=== PATIENT | female | born 1995 ===

== ENCOUNTER 2019-02-18 12:51 | Emergency (ER) | payer SELFPAY ==
[2019-02-18 13:11] VITALS: BP 125/51
--- NOTE | 2019-02-18 13:17 | Emergency Department Report ---
Chief Complaint: Medical Clearance Stated Complaint: 5WKS DOC ORDERED Time Seen by Provider: 02/18/19 13:08 - HPI History of Present Illness: 23 y o female at 5 weeks gestation presents to ER stating she needs a referral for an obgyn She states that she was recently confirmed at her pcp office last week for positive states her pcp is unable to get her a refferral because of her insurance She denies f/c/n/v/abd pain or any problems - ROS Review of Systems: As noted in HPI - Exam Vital Signs: Vital Signs 02/18/19 13:06 Temperature 98.8 F Pulse Rate 93 H Respiratory 18 Rate Blood Pressure 125/51 O2 Sat by Pulse 98 Oximetry Physical Exam: GEN: AAO x 3 MSE screening note: Focused history and physical exam performed. Due to findings the following was ordered: ED Medical Decision Making - Medical Decision Making 23 y o female presents for ongyn referral Discussed referral given Discussed f/u She is in no acute distress ED Disposition for MSE Clinical Impression: Positive urine test Disposition: TO HOME OR SELFCARE Is pt being admited?: No Does the pt Need Aspirin: No Condition: Stable Instructions: (ED), Morning Sickness (ED) Additional Instructions: you have been given referrals for an obgyn please call and f/u with obgyn take your pnv daily Prescriptions: Vit-Fe Fumar-FA [ Vitamin] 1 tab PO QDAY #40 tablet Referrals: [facility] [Provider Group] - 3-5 Days [facility] [Provider Group] - 3-5 Days [facility] [Provider Group] - 3-5 Days Forms: Work/School Release Form(ED) Time of Disposition: 13:49
== END 2019-02-18 14:00 | disposition home or self-care (01) ==
LOC: ED 12:51
DX: O26.891 Other specified pregnancy related conditions, first trimester (principal)
CPT/HCPCS: 99282

== ENCOUNTER 2019-03-28 18:43 | Emergency (ER) | payer SELFPAY | END 2019-03-28 20:00 | disposition left against medical advice (07) | LOC: ED 18:43 | DX: N93.9 Abnormal uterine and vaginal bleeding, unspecified (principal); Z53.21 Procedure and treatment not carried out due to patient leaving prior to being seen by health care provider ==